=== PATIENT | female | born 1985 | race Caucasian/White ===

== ENCOUNTER 2017-08-17 11:56 | Inpatient (IN) | payer OTHER ==
[2017-08-17] MEDS ORDERED: OXYTOCIN 20 UNIT in LR 1,000 ML IV PRN (13:21)
[2017-08-17] MEDS ORDERED: TERBUTALINE SULFATE 1 MG/ML VIAL IV PRN (13:21)
[2017-08-17] MEDS ORDERED: MISOPROSTOL 200 MCG TAB PR PRN (13:21)
[2017-08-17] MEDS ORDERED: OLIVE OIL 118 ML BTL MISC PRN (13:21)
[2017-08-17] MEDS ORDERED: EPSOM SALT 454 GM TP PRN (13:21)
[2017-08-17] MEDS ORDERED: LR 1,000 ML IV PRN (13:21)
[2017-08-17] MEDS ORDERED: IBUPROFEN 600 MG TAB PO PRN (13:21)
[2017-08-17 13:41] LABS: PLATELET COUNT 220 10^3/uL (150-400)
[2017-08-17] MEDS ORDERED: OLIVE OIL 118 ML BTL ONE (13:46)
[2017-08-17] MEDS ORDERED: LIDOCAINE 1% 300 MG/30 ML SDV ONE (13:46)
[2017-08-17] MEDS ORDERED: AMMONIA AROMATIC 1 EACH AMP IH ONE (13:46)
[2017-08-17] MEDS ORDERED: MISOPROSTOL 200 MCG TAB ONE (13:47)
[2017-08-17] MEDS ORDERED: TERBUTALINE SULFATE 1 MG/ML VIAL ONE (13:47)
[2017-08-17] MEDS ORDERED: OXYTOCIN 10 UNIT/ML VIAL ONE (13:47)
[2017-08-17] MEDS ORDERED: BUPIVACAINE 0.25% 30 ML SDV ONE (14:49)
[2017-08-17] MEDS ORDERED: PHENYLEPHRINE HCL 100 MCG/ML SYR ONE (14:49)
[2017-08-17] MEDS ORDERED: fentaNYL 100 MCG/2 ML INJ ONE (14:50)
--- NOTE | 2017-08-17 15:34 | GHP ---
[f rep st] HISTORY AND PHYSICAL DATE OF ADMISSION: 08/17/2017 ADMITTING DIAGNOSES: 1. Intrauterine at 38-3/7 weeks. 2. Spontaneous rupture of membranes. 3. Active labor. HISTORY OF PRESENT ILLNESS: Patient is a 32-year-old, 2, para 0-0-1-0, at 38-3/7 weeks with an estimated due date 08/28/2017 that is consistent with a first-trimester ultrasound at 8 weeks. LMP 11/12/2016 and date of conception per patient. Patient presents with complaints of leakage of fluid since 2 :30 this morning. Clear fluid noted, slightly blood stained. She states contractions are getting more frequent, and starting to get painful. Denies any bleeding. States good movement. She would like an epidural. Patient is a transfer of care to [facility] at 26 weeks. She went to [facility] to get , and for a change of lifestyle. She then returned to [place] from [facility] in April 2017. She has a history of infertility, they tried to get for 2 years. She was seen by a specialist and unsure exact cause. She took Clomid in October 2016 and then spontaneously conceived in November 2016. Patient is Rh negative, and did receive RhoGAM 06/03/2017. The patient had a normal first trimester screen. Genetic testing results negative per patient, but reports she was told 1:200 chance of being a carrier of Fragile X. Third trimester ultrasound for growth was normal with an estimated weight in 36 percentile, posterior placenta, normal [place]. Patient received Tdap in this . She develop anemia of , and tolerating iron. GBS culture is negative. PAST OBSTETRICAL HISTORY: In 2003, she had an elective AB at 6 weeks with retained products, needed D and C. PAST GYNECOLOGIC HISTORY: Age of menarche 10. Cycles are every 20-32 days for 5 days. LMP 11/12/2016. test 12/15/2016. Patient does have a history of abnormal Pap smear in 2014, +HRHPV, no treatment. She was treated for chlamydia in 2006. CURRENT MEDICATIONS: Auxg-[id number] vitamins and iron. PAST MEDICAL HISTORY: Migraine headaches. PAST SURGICAL HISTORY: D and C in 2003. A polypectomy in August 2015. [place] teeth extraction. FAMILY HISTORY: Mother with lymphoma diagnosed 35 years of age, still living. SOCIAL HISTORY: Patient is . 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 Lives with her , who is an ui architect. Denies any alcohol, tobacco, illicit drug use. REVIEW OF SYSTEMS: A 10-point review of systems is negative. Pertinent positives noted in HPI. LABORATORY DATA: Prenatals: O-negative, positive antigene in [place]. RPR nonreactive. Rubella immune. Hepatitis B surface antigen and hepatitis C negative. HIV is negative. CMV negative. Gonorrhea, chlamydia negative. Innatal screen negative. 1-hour Glucola 92. H and H 11.9 and 35. GBS culture is negative. PHYSICAL EXAMINATION: VITAL SIGNS: On admission vital signs are stable. Patient is afebrile. GENERAL: Well-nourished, well-developed female, alert and oriented x3. Mild distress secondary to pain with contractions. CARDIOVASCULAR: Regular rate and rhythm. LUNGS: Clear to auscultation bilaterally. ABDOMEN: Gravid, soft, nontender. PELVIC: She is noted to be 8 cm, 100%, +1 station. Grossly ruptured. EXTREMITIES: Normal to inspection without calf tenderness or edema. heart tones are Category 1 tracing with baseline 140 beats per minute. Positive accelerations. No decelerations. Moderate variability. On TOCO, she is danyel anywhere from 3-5 minutes. ASSESSMENT AND PLAN: Patient is a 32-year-old, 2, para 0-0-1-0, at 38-3 /7 weeks, who presents with spontaneous rupture of membranes in active labor. 1. Admit to Labor and Delivery. 2. GBS is negative. No prophylactic antibiotics needed. 3. Patient requesting an epidural. 4. Anticipate vaginal delivery. /[id number]/MODL MTDD
--- NOTE | 2017-08-17 16:06 | PDMN ---
Medical Necessity Medical necessity: Patient meets inpatient criteria per physician note and likely MCG [id number] Vaginal Delivery (SROM, active labor.)
[2017-08-17] MEDS ORDERED: ONDANSETRON 4 MG/2 ML VIAL IVP PRN (16:38)
[2017-08-17] MEDS ORDERED: PHENYLEPHRINE HCL 100 MCG/ML SYR IVP PRN (16:38)
[2017-08-17] MEDS ORDERED: fentaNYL 2MCG/ML/BUP 0.1% RTU 100 ML EP SCH (17:00)
[2017-08-17] MEDS ORDERED: LR 500 ML IV SCH (17:00)
[2017-08-17] MEDS ORDERED: fentaNYL 200 MCG, BUPIVACAINE 0.5% 20 ML in NS 100 ML EP SCH (17:00)
[2017-08-17] MEDS ORDERED: ACETAMINOPHEN 325 MG TAB ONE (17:14)
[2017-08-17] MEDS ORDERED: ACETAMINOPHEN 325 MG TAB PO ONE (17:15)
--- NOTE | 2017-08-17 17:21 | OBPROG ---
Labor Progress Note Assessment/Plan: Assessment: 32 y/o @ 38 3/7 wks with SROM in active labor Plan: Pt is s/p epidural On exam, pt is complete/+2 Pt is febrile at 38.4, will give Tylenol; no tachycardia noted; cont to monitor Will start pushing Anticipate 08/17/17 17:18 Subjective/Intrapartum Course: 08/17/17 17:20 Pt is s/p epidural, states ctx's and back pain are improved, but she is having pressure. Objective: 08/17/17 13:20 Patient ABO/Rh O NEGATIVE 08/17/17 13:20 - SVE Dilation (cm): 10 Effacement (%): 100 Station: +2 Membranes: SROM Amniotic Fluid Color: Clear Dilation Complete Date: 08/17/17 Dilation Complete Time: 05:15 - Contraction Pattern Assessment Current Contraction Pattern: Regular - FHR Assessment Javed FHR (bpm): 160 FHR Pattern Variability: Moderate FHR Category: 1 - AP Antepartum Course: 08/17/17 17:22 Pt presents with SROM-clear fluid in active labor. GBS cx negative. Transfer of care at 26 weeks from [facility]. Uncomplicated . Rh negative. Oxytocin Orders Assessment - Pre-Induction/Augmentation Assessment Gestational Age: 38 week(s) and 3 day(s) ICD10 Worksheet Patient Problems: Problems Problem Status Onset Rupture of membranes with clear amniotic fluid Acute - ICD10 Problem Qualifiers (1) Rupture of membranes with clear amniotic fluid
--- NOTE | 2017-08-17 20:40 | POSTANESTH ---
Post Anesthetic Evaluation Cardiovascular Status: Normal, Stable, Similar to Pre-Op Cond Respiratory Status: Normal, Stable, Similar to Pre-op Cond. Level of Consciousness/Mental Status: Can Participate in Eval, Alert and Oriented Pain Control: Adequate, Prn Tx Ordered Nausea/Vomiting Control: Adequate, Prn Tx Ordered Complications Possibly Related to Anesthesia: None Noted
--- NOTE | 2017-08-17 20:43 | PREANESOB ---
Obstetric Pre-Anesthesia Info - General Info Proposed Procedure: Labor and delivery. : 2 Para: 0 NAVI: 08/28/17 Gestational Age: 38 week(s) and 3 day(s) - Info Status: Full Term Monitors: External FHR Baseline (bpm): 140 FHR Pattern: Reassuring - Labor Status Cervical Dilation per last OB SVE: 8 Station per last OB SVE: +2 Amniotic Fluid Color: Clear Indications for Labor Analgesia: Pain Control Labor Epidural: Proposed Anesthesia ROS: Prior general anesthesia. Allergies/Adverse Reactions: Allergy/AdvReac Type Severity Reaction Status Date / Time No Known Allergies Allergy Unverified 08/17/17 12:31 Home Medications: Medication Instructions Recorded Iron 28 mg PO BID 08/17/17 Vit27&Calcium/Iron/FA 1 each PO DAILY 08/17/17 [ Rx 1 Tablet (RX)] Visit Medications: Generic Name Dose Route Start Last Admin Trade Name Freq PRN Reason Stop Dose Admin Diphenhydramine HCl 25 - 50 mg 08/17/17 16:38 Benadryl Injection IVP 02/13/18 16:37 Q6HRS PRN Itching Lactated Ringer's 1,000 mls @ 0 mls/hr 08/17/17 13:21 Lr IV 08/18/17 13:20 PRN PRN SEE PROTOCOL CONDITIONS Protocol Per Protocol Oxytocin 20 unit/ Lactated 1,002 mls @ 150 mls/hr 08/17/17 13:21 Ringer's IV PRN PRN Post- bleeding Lactated Ringer's 500 mls @ 0 mls/hr 08/17/17 17:00 Lr IV 02/13/18 16:59 CONT MAYNOR As Directed Fentanyl 200 mcg/ Bupivacaine 100 mls @ 0 mls/hr 08/17/17 17:00 HCl 20 ml/ Sodium Chloride EP 08/27/17 16:59 CONT MAYNOR Protocol As Directed Ibuprofen 600 mg 08/17/17 13:21 Motrin PO 02/13/18 13:20 Q6HRS PRN post , inflammation Magnesium Sulfate 454 gm 08/17/17 13:21 Epsom Salt TP 02/13/18 13:20 Q1H PRN perineal discomfort Misoprostol 800 - 1,000 mcg 08/17/17 13:21 Cytotec WV ONCE PRN Vaginal Atony/Bleeding [place] Oil 118 ml 08/17/17 13:21 Sweet Oil MISC 02/13/18 13:20 ONCE PRN perineal massage Ondansetron HCl 4 mg 08/17/17 16:38 Zofran IVP 08/18/17 16:37 Q4HRS PRN Nausea/Vomiting, Can't Take PO Phenylephrine HCl 100 mcg 08/17/17 16:38 Neosynephrine IVP 02/13/18 16:37 .Q2M PRN Hypotension Terbutaline Sulfate 0.25 mg 08/17/17 13:21 Brethine IV 02/13/18 13:20 ONCE PRN Tachysystole Discontinued Medications Generic Name Dose Route Start Last Admin Trade Name Freq PRN Reason Stop Dose Admin Acetaminophen Confirm 08/17/17 17:14 Tylenol Administered 08/17/17 17:15 Dose 650 mg .ROUTE .STK-MED ONE Acetaminophen 650 mg 08/17/17 17:15 08/17/17 17:17 Tylenol PO 08/17/17 17:16 650 mg ONCE ONE Administration Ammonia (Aromatic Spirit) Confirm 08/17/17 13:46 Ammonia Aromatic Administered 08/17/17 13:47 Dose 1 each IH .STK-MED ONE Bupivacaine HCl Confirm 08/17/17 14:49 Sensorcaine 0.25% Sdv Administered 08/17/17 14:50 Dose 30 ml .ROUTE .STK-MED ONE Fentanyl Confirm 08/17/17 14:50 Sublimaze Administered 08/17/17 14:51 Dose 100 mcg .ROUTE .STK-MED ONE Lidocaine HCl Confirm 08/17/17 13:46 Lidocaine Hcl 1% Administered 08/17/17 13:47 Dose 300 mg .ROUTE .STK-MED ONE Misoprostol Confirm 08/17/17 13:47 Cytotec Administered 08/17/17 13:48 Dose 1,000 mcg .ROUTE .STK-MED ONE [place] Oil Confirm 08/17/17 13:46 Sweet Oil Administered 08/17/17 13:47 Dose 118 ml .ROUTE .STK-MED ONE Oxytocin Confirm 08/17/17 13:47 Pitocin Administered 08/17/17 13:48 Dose 40 unit .ROUTE .STK-MED ONE Phenylephrine HCl Confirm 08/17/17 14:49 Neosynephrine Administered 08/17/17 14:50 Dose 1,000 mcg .ROUTE .STK-MED ONE Terbutaline Sulfate Confirm 08/17/17 13:47 Brethine Administered 08/17/17 13:48 Dose 1 mg .ROUTE .STK-MED ONE - Anesthesia History Response to Local Anesthetics: Normal Anesthesia & Operative History: No Prior Problems Family Anesthesia History: Negative - Social History Substance Use/Abuse: Denies - Vital Signs Blood Pressure: 125/80 Heart Rate: 87 Height/Weight (Nursing): Height 162.56 cm Weight 74.843 kg - Focused Exam Neck exam: FROM Mallampati Score: Class 1 Mouth exam: normal dental/mouth exam Pulmonary: no respiratory distress Cardiovascular: regular rate and rhythym Labs: 08/17/17 13:20 Patient ABO/Rh O NEGATIVE 08/17/17 13:20 - Plan Consent Signed and on Chart: Yes Patient/Guardian Understands and Agrees to Plan: Yes Urgent/Emergent Case: Sacha munson completed preop but documented later for safe timely pt care
[2017-08-17] MEDS ORDERED: SIMETHICONE 80 MG TAB CHEW PO PRN (21:17)
[2017-08-17] MEDS ORDERED: HYDROCORTISONE 0.5% CREAM TP PRN (21:17)
[2017-08-17] MEDS ORDERED: HYDROCODONE/APAP 5/325 TAB PO PRN (21:17)
--- NOTE | 2017-08-17 21:28 | OBDEL ---
Info Type: Vaginal Presentation at Delivery: Vertex L&D Analgesia/Anesthesia Type: Epidural GBS+: No Intrapartum Medications: Generic Name Dose Route Start Last Admin Trade Name Freq PRN Reason Stop Dose Admin Ibuprofen 600 mg 08/17/17 13:21 08/17/17 21:15 Motrin PO 02/13/18 13:20 600 mg Q6HRS PRN Administration post , inflammation Discontinued Medications Generic Name Dose Route Start Last Admin Trade Name Freq PRN Reason Stop Dose Admin Acetaminophen 650 mg 08/17/17 17:15 08/17/17 17:17 Tylenol PO 08/17/17 17:16 650 mg ONCE ONE Administration - Hospital Course Intrapartum: 08/17/17 17:20 Pt is s/p epidural, states ctx's and back pain are improved, but she is having pressure. Indications for Delivery: Spontaneous Labor, SROM Vaginal Delivery - Delivery Provider Delivery Physician/CNM: Angela Trinidad - Labor and Delivery Onset of Contractions Date: 08/17/17 Onset of Contractions Time: 02:30 Onset of Contractions Type: Spontaneous Rupture of Membranes Date: 08/17/17 Rupture of Membranes Time: 02:30 Rupture of Membranes Type: Spontaneous Amniotic Fluid Color: Clear Dilation Complete Date: 08/17/17 Dilation Complete Time: 05:15 Placenta Delivery Date: 08/17/17 Placenta Delivery Time: 21:05 Total Hours of Labor: 18 Laceration: Other (Specify) (Midline vaginal lac) Repair: 3-0, Vicryl Vaginal Sponge Count Correct: Yes Vaginal Needle Count Correct: Yes Vaginal Sweep Performed: Yes EBL: 350 cc Delivery Events: None Delivery Comment: Delivered direct OA. Uncomplicated. Data NAVI: 08/28/17 Gestational Age: 38 week(s) and 3 day(s) Javed Delivery Date: 08/17/17 Delivery Time: 20:58 Sex of Infant: Female Score (1 Min): 8 Score (5 Min): 9 ICD10 Worksheet Patient Problems: Problems Problem Status Onset Rupture of membranes with clear amniotic fluid Acute (spontaneous vaginal delivery) Acute - ICD10 Problem Qualifiers (1) Rupture of membranes with clear amniotic fluid (2) (spontaneous vaginal delivery)
[2017-08-18] MEDS: IBUPROFEN 600 MG TAB PO PRN ×4 (03:05→22:59)
[2017-08-18] MEDS: DOCUSATE SODIUM 100 MG CAP PO PRN (03:05)
[2017-08-18] MEDS: IRON POLYSAC/IRON HEME 28 MG TAB PO SCH ×2 (09:31→22:59)
--- NOTE | 2017-08-18 14:44 | OBPP ---
Progress Note Assessment/Plan: Assessment:nipples intact well ff@u scant rubra lochia/ clot [place]/lemon size voiding without difficulty perineum approximated/ minimal swelling pin well managed Plan:pp day 1 expectant management discussed ways to assist with perineal pain and back pain 08/18/17 14:42 Subjective/ Course: 08/18/17 14:40 Doing well. Had a clot the size of a lemon or [place] before assessment. Reviewed the delivery note at patients insistence no packing charted count correct per dr. ball after delivery. reassured patient no packing. Voiding well. Pain well managed. Complaint of back pain from the epidural. Objective: 08/18/17 06:10 Patient ABO/Rh O NEGATIVE 08/17/17 13:20 Temp Pulse Resp BP Pulse Ox 36.6 C 97 16 98/68 L 96 08/18/17 08:00 08/18/17 08:00 08/18/17 08:00 08/18/17 08:00 08/18/17 08:00 Uterine Position/Fundal Height: At Umbilicus Uterine Tone: Firm Physical Exam - Physical Exam General Appearance: WD/WN, alert, no apparent distress Abdomen: other (ff2u scant rubra lochia/ perineum approximated minimal swelling) Extremities: normal range of motion, Vincenzo's sign (negative bilaterally) DTR- Lower Extremities: Knee (R): 1+, Knee (L): 1+ (no clonus) Skin: normal color, warm/dry Neuro/Psych: no motor/sensory deficits, alert, normal mood/affect, oriented x 3
[2017-08-18 20:13] VITALS: O2SAT 97
[2017-08-19] MEDS: IBUPROFEN 600 MG TAB PO PRN ×2 (06:13→12:28)
[2017-08-19 10:17] VITALS: BP 94/63; PULSE 75; RESP 14; TEMP 97.7
[2017-08-19] MEDS: IRON POLYSAC/IRON HEME 28 MG TAB PO SCH (12:27)
[2017-08-19] MEDS: DOCUSATE SODIUM 100 MG CAP PO PRN (12:28)
--- NOTE | 2017-08-19 12:55 | OBGCSDC ---
General Delivery Information - General Info : 2 Para: 1 Abortions: 1 Type: Vaginal L&D Analgesia/Anesthesia Type: Epidural Admission Date: 08/17/17 Labs: Patient ABO/Rh O NEGATIVE 08/17/17 13:20 Hct 26.1 % (38.0-47.0) L D 08/18/17 06:10 - Hospital Course Antepartum: 08/17/17 17:22 Pt presents with SROM-clear fluid in active labor. GBS cx negative. Transfer of care at 26 weeks from [facility]. Uncomplicated . Rh negative. Intrapartum: 08/17/17 17:20 Pt is s/p epidural, states ctx's and back pain are improved, but she is having pressure. : 08/18/17 14:40 Doing well. Had a clot the size of a lemon or [place] before assessment. Reviewed the delivery note at patients insistence no packing charted count correct per dr. trinidad after delivery. reassured patient no packing. Voiding well. Pain well managed. Complaint of back pain from the epidural. 08/19/17 0945 S) Pt doing well, reports min pain and bleeding. she is ambulating and voiding without difficulty. She is . She desires discharge home today. O) VSS, afebrile constitutional: WNWF, A&Ox3 HEENT: normocephalic, atraumatic, supple Heart: RRR, No murmur Chest: CTA-B Abdomen: Soft, nontender Uterus: Firm at U-2 Lochia: Minimal rubra Perineum: Intact, healing well Extremities: Trace edema, and negative Vincenzo's sign Neuro: Grossly normal A) 32-year-old S/P PPD#2 P) Discharge home today Continue Pelvic rest x6wks Discussed danger signs (infection, preeclampsia, depression, heavy bleeding, etc ) RTO in 4/6 weeks Vaginal - Delivery Provider Delivery Physician/CNM: Angela Trinidad - Diagnosis Labor: Spontaneous Rupture of Membranes Type: Spontaneous Amniotic Fluid Color: Clear Laceration: Other (Specify) (Midline vaginal lac) Repair: 3-0, Vicryl Delivery Events: None - Delivery EBL: 350 cc [place] Data NAVI: 08/28/17 Gestational Age: 38 week(s) and 5 day(s) Javed Delivery Date: 08/17/17 Delivery Time: 20:58 Sex of : Female [place] Weight (gm): 3308 g Score (1 Min): 8 Score (5 Min): 9 Discharge Information - Discharge Information Prescriptions: Ibuprofen [Motrin (*)] 600 mg PO Q6HRS PRN #30 tab PRN Reason: Pain, Inflammatory Condition: Good Instruction/Follow Up: Four Weeks, Six Weeks
== END 2017-08-19 14:21 | disposition home or self-care (01) | DRG 774 ==
LOC: FLD 11:56 → FOB 08-18 01:29
PROVIDERS: ADMIT Advanced Practice Midwife; ATTEND Obstetrics & Gynecology
PROC: 3E0234Z Introduction of Serum, Toxoid and Vaccine into Muscle, Percutaneous Approach (ICD-10-PCS; principal; 2017-08-17)
PROC: 10E0XZZ Delivery of Products of Conception, External Approach (ICD-10-PCS; principal; 2017-08-17)
PROC: 0HQ9XZZ Repair Perineum Skin, External Approach (ICD-10-PCS; principal; 2017-08-17)
PROC: 3E0P7GC Introduction of Other Therapeutic Substance into Female Reproductive, Via Natural or Artificial Opening (ICD-10-PCS; principal; 2017-08-17)
DX: O70.0 First degree perineal laceration during delivery (principal); O72.1 Other immediate postpartum hemorrhage; Z67.91 Unspecified blood type, Rh negative; Z3A.38 38 weeks gestation of pregnancy; Z37.0 Single live birth
CPT/HCPCS: J2370; J2590; J3010; J3105